=== PATIENT | female | born 1970 | race Two or more races ===

== ENCOUNTER 2019-01-04 06:15 | Inpatient (IN) ==
[2019-01-04] MEDS ORDERED: KETOROLAC 60 MG/2 ML VIAL IM STA (06:47)
[2019-01-04] MEDS ORDERED: DEXAMETHASONE 10 MG/1 ML VIAL IM STA (06:47)
[2019-01-04] MEDS ORDERED: ONDANSETRON ODT 4 MG TABLET PO STA (06:52)
[2019-01-04 07:00] LABS: Apearance,Urine CLEAR (Clear); Bilirubin,Urine Negative (Negative); Blood, Urine Moderate mg/dL (Negative); Glucose,Urine (UA) Negative (Negative); Hyaline Casts,Urine 1 /LPF (0-3); Ketones,Urine Negative (Negative); Mucus,Urine Occasional /LPF (Occasional); Nitrite,Urine Negative (Negative); Protein,Urine Negative; RBC,Urine 2 /HPF (0-4); Squamous Epithelial Cell,Urine Occasional /HPF (0-10); Urine Color Yellow (Yellow); Urine Specific Gravity 1.013 (1.001-1.035); Urine Urobilinogen < 2.0 EU/DL (0.2-1.0); WBC,Urine 1 /HPF (0-6)
[2019-01-04] MEDS ORDERED: HYDROmorphone 2 MG/1 ML VIAL IV PRN (07:27)
[2019-01-04 07:54] LABS: Basophils % 0.5 % (0.0-0.8); Eosinophils # 0.1 10*3/uL (0.0-0.87); Eosinophils % 1.5 % (0.00-10.9); Hemoglobin 12.7 GM/DL (12.0-16.0); Immature Granulocytes % 0.2 %; Immature Granulocytes Absolute 0.01 #; Lymphocytes # 2.6 10*3/uL (1.4-4.0); Lymphocytes % 43.7 % (21.3-54.2); Mean Corpuscular HGB Conc 32.6 GM/DL (32-36); Mean Corpuscular Hemoglobin 29 PG (27-34); Mean Corpuscular Volume 90.3 FL (87-102); Mean Platelet Volume 10.2 FL (9.6-12.0); Monocytes # 0.5 10*3/uL (0.11-0.8); Monocytes % 8.1 % (1.7-12.7); Neutrophils # 2.7 10*3/uL (1.4-7.4); Platelet Count 244 T/CUMM (130-400); Red Blood Count 4.32 MC/CUMM (3.8-5.5); Red Cell Distribution Width 13.7 % (9.3-17.3); White Blood Count 5.9 T/CUMM (4-12)
[2019-01-04 08:05] LABS: INR 0.9; PT Patient Result 10.3 SECS
[2019-01-04 08:16] LABS: Albumin 3.3 G/DL (3.4-5.0); Bilirubin,Total 0.5 MG/DL (0.2-1.0); Calcium 8.5 MG/DL (8.5-10.1); Osmolality,Calculated 275.5 MOS/KG (273-304); Potassium 3.8 MMOL/L (3.5-5.1); Total Protein 7.2 G/DL (6.4-8.3)
[2019-01-04] MEDS ORDERED: MEPERIDINE 25 MG/1 ML VIAL IV PRN (09:21)
[2019-01-04] MEDS: LACTATED RINGERS 1,000 ML IV SCH ×2 (09:41→17:31)
[2019-01-04] MEDS: ONDANSETRON 4 MG/2 ML VIAL IV PRN ×2 (09:42→19:35)
[2019-01-04] MEDS: IBUPROFEN 800 MG TABLET PO PRN (22:05)
[2019-01-05] MEDS: ONDANSETRON 4 MG/2 ML VIAL IV PRN ×2 (00:29→12:23)
[2019-01-05] MEDS: LACTATED RINGERS 1,000 ML IV SCH ×2 (01:09→09:37)
[2019-01-05] MEDS: HYDROmorphone 2 MG/1 ML VIAL IV PRN ×2 (12:22→13:28)
[2019-01-05] MEDS ORDERED: PROMETHAZINE 25 MG/1 ML VIAL IM PRN (16:40)
[2019-01-05] MEDS ORDERED: SODIUM PHOSPHATE ENEMA 133 ML BOTTLE RECTAL ONE (21:00)
[2019-01-05] MEDS: IBUPROFEN 800 MG TABLET PO PRN (22:42)
[2019-01-06] MEDS ORDERED: FAMOTIDINE 20 MG TABLET PO ONE (07:29)
[2019-01-06] MEDS ORDERED: DIAZEPAM 5 MG TABLET PO ONE (07:29)
[2019-01-06] MEDS: LACTATED RINGERS 1,000 ML IV SCH ×3 (11:22→16:51)
[2019-01-06] MEDS ORDERED: ceFAZolin 1,000 MG VIAL ONE (12:16)
[2019-01-06] MEDS ORDERED: MICROFIBRILLAR COLLAGEN POWDER 1 GM CAN TOP ONE (12:35)
[2019-01-06 13:23] LABS: Apearance,Urine CLEAR (Clear); Bilirubin,Urine Negative (Negative); Blood, Urine Small mg/dL (Negative); Glucose,Urine (UA) Negative (Negative); Ketones,Urine Negative (Negative); Nitrite,Urine Negative (Negative); Protein,Urine Negative; RBC,Urine 1 /HPF (0-4); Squamous Epithelial Cell,Urine Occasional /HPF (0-10); Urine Color Straw (Yellow); Urine Specific Gravity 1.008 (1.001-1.035); Urine Urobilinogen < 2.0 EU/DL (0.2-1.0); WBC,Urine 1 /HPF (0-6)
[2019-01-06] MEDS ORDERED: ACETAMINOPHEN 325 MG TABLET PO PRN (13:28)
[2019-01-06] MEDS ORDERED: BENZOCAINE/MENTHOL LOZENGE 18/BOX PO PRN (13:28)
[2019-01-06] MEDS ORDERED: ONDANSETRON 4 MG/2 ML VIAL IV PRN ×2 (13:28→14:07)
[2019-01-06] MEDS ORDERED: BISACODYL 10 MG SUPP RECTAL PRN (13:28)
[2019-01-06] MEDS ORDERED: EPINEPHrine 1 MG/ML VIAL ONE (13:38)
[2019-01-06] MEDS ORDERED: ROPIVACAINE 0.5% 30 ML VIAL ONE (13:42)
[2019-01-06] MEDS ORDERED: BUPIVACAINE 0.5% 50 ML VIAL ONE (13:43)
[2019-01-06] MEDS ORDERED: LIDOCAINE 100 MG/5 ML SYRINGE ONE (13:44)
[2019-01-06] MEDS ORDERED: HYDROmorphone 2 MG/1 ML VIAL ONE (13:51)
[2019-01-06] MEDS ORDERED: ONDANSETRON 4 MG/2 ML VIAL ONE ×2 (13:52→15:24)
[2019-01-06] MEDS: HYDROmorphone 2 MG/1 ML VIAL IV PRN ×2 (13:55→14:10)
[2019-01-06] MEDS ORDERED: KETOROLAC 60 MG/2 ML VIAL IM ONE ×2 (14:46→14:50)
[2019-01-06] MEDS ORDERED: ACETAMINOPHEN 1,000 MG/100 ML VIAL IV ONE (14:46)
[2019-01-06] MEDS ORDERED: ACETAMINOPHEN INJ 1,000 MG in PREMIX 1 EACH IV ONE (14:54)
[2019-01-06] MEDS ORDERED: MIDAZOLAM 2 MG/2 ML VIAL ONE (15:24)
[2019-01-06] MEDS ORDERED: GLYCOPYRROLATE 0.4 MG/2 ML VIAL ONE (15:24)
[2019-01-06] MEDS ORDERED: fentaNYL 100 MCG/2 ML VIAL ONE (15:24)
[2019-01-06] MEDS ORDERED: ETOMIDATE 40 MG/20 ML VIAL IV ONE (15:24)
[2019-01-06] MEDS ORDERED: SEVOFLURANE 1 UNIT/15 MINUTE INH ONE (15:24)
[2019-01-06] MEDS ORDERED: HYDROmorphone 2 MG/1 ML VIAL IV PRN (15:25)
[2019-01-06] MEDS ORDERED: LACTATED RINGERS 1,000 ML IV ONE (15:25)
[2019-01-06] MEDS ORDERED: ROCURONIUM 100 MG/10 ML VIAL IV ONE (15:25)
[2019-01-06] MEDS ORDERED: NEOSTIGMINE 10 MG/10 ML VIAL ONE (15:25)
[2019-01-06] MEDS: ceFAZolin 1,000 MG in SYRINGE 1 EACH IV SCH (20:09)
[2019-01-06] MEDS: IBUPROFEN 800 MG TABLET PO PRN (21:04)
[2019-01-07] MEDS: LACTATED RINGERS 1,000 ML IV SCH (01:05)
[2019-01-07] MEDS: ceFAZolin 1,000 MG in SYRINGE 1 EACH IV SCH (04:27)
[2019-01-07] MEDS: IBUPROFEN 800 MG TABLET PO PRN ×2 (05:37→20:36)
[2019-01-07 05:45] LABS: Basophils % 0.3 % (0.0-0.8); Eosinophils # 0.1 10*3/uL (0.0-0.87); Eosinophils % 0.6 % (0.00-10.9); Hematocrit 30.7 VOL% (35.7-47.0); Hemoglobin 9.9 GM/DL (12.0-16.0); Immature Granulocytes % 0.4 %; Immature Granulocytes Absolute 0.04 #; Lymphocytes # 1.8 10*3/uL (1.4-4.0); Lymphocytes % 20.2 % (21.3-54.2); Mean Corpuscular HGB Conc 32.2 GM/DL (32-36); Mean Corpuscular Hemoglobin 30 PG (27-34); Mean Corpuscular Volume 91.6 FL (87-102); Mean Platelet Volume 9.8 FL (9.6-12.0); Monocytes # 0.7 10*3/uL (0.11-0.8); Monocytes % 7.9 % (1.7-12.7); Neutrophils # 6.4 10*3/uL (1.4-7.4); Neutrophils % 70.6 % (38.7-73.9); Platelet Count 187 T/CUMM (130-400); Red Blood Count 3.35 MC/CUMM (3.8-5.5); Red Cell Distribution Width 13.8 % (9.3-17.3); White Blood Count 9.1 T/CUMM (4-12)
[2019-01-07] MEDS: DOCUSATE SODIUM 100 MG CAPSULE PO PRN ×2 (08:33→20:32)
[2019-01-07] MEDS: METOCLOPRAMIDE 10 MG TABLET PO SCH ×2 (08:33→16:11)
[2019-01-07] MEDS: MAGNESIUM HYDROXIDE SUSP 30 ML UDCUP PO PRN ×2 (08:35→20:33)
[2019-01-07] MEDS: SIMETHICONE CHEW 80 MG TABLET PO PRN (17:55)
[2019-01-07] MEDS: FERROUS SULFATE 325 MG TABLET PO SCH (20:32)
[2019-01-07] MEDS: PHENAZOPYRIDINE 95 MG TABLET PO SCH (21:49)
[2019-01-07] MEDS ORDERED: LACTATED RINGERS 1,000 ML IV SCH (22:00)
[2019-01-07] MEDS: SOLIFENACIN 5 MG TABLET PO SCH (22:38)
[2019-01-08] MEDS: IBUPROFEN 800 MG TABLET PO PRN (08:38)
[2019-01-08] MEDS: SOLIFENACIN 5 MG TABLET PO SCH (08:38)
[2019-01-08] MEDS: DOCUSATE SODIUM 100 MG CAPSULE PO PRN (08:38)
[2019-01-08] MEDS: MAGNESIUM HYDROXIDE SUSP 30 ML UDCUP PO PRN (08:38)
[2019-01-08] MEDS: SIMETHICONE CHEW 80 MG TABLET PO PRN (08:38)
[2019-01-08] MEDS: FERROUS SULFATE 325 MG TABLET PO SCH (08:38)
[2019-01-08] MEDS: PHENAZOPYRIDINE 95 MG TABLET PO SCH ×2 (08:38→12:58)
[2019-01-08] MEDS: METOCLOPRAMIDE 10 MG TABLET PO SCH ×2 (08:38→08:41)
[2019-01-08 12:00] VITALS: BP 99/52
== END 2019-01-08 13:25 | disposition home or self-care (01) | DRG 743 ==
LOC: N.ED 06:15 → N.EDINP 07:26 → N.OB 08:46
PROVIDERS: ADMIT Obstetrics & Gynecology; ATTEND Obstetrics & Gynecology